=== PATIENT | male | born 1980 | race Caucasian/White ===

== ENCOUNTER 2023-12-06 13:16 | Inpatient (IN) ==
--- OUTSIDE RECORDS SUMMARY | 2023-12-06 13:22 | External Medical Summary | Continuity of Care Document ---
Author Name Unknown Organization [address] Address [address] [place] [address] [place], [place] [id number] Encounter PS FINNBR [id number] Date(s): 12/03/23 - 12/03/23 [facility] [address] [place] [address] [facility] [address], [address] [place] [address] [phone] Encounter Diagnosis Body mass index [BMI] 28.0-28.9, adult(Discharge Diagnosis) - 12/03/23 Left flank pain(Discharge Diagnosis) - 12/03/23 Ureterolithiasis(Discharge Diagnosis) - 12/04/23 Discharge Disposition: Home or Self Care Attending Physician: DO Dash Kristen M Allergies, Adverse Reactions, Alerts No Known Allergies Assessment and Plan Extracted from: Title:Office Visit Note Author:MD Cony, Wasiq Date:12/03/23 1.Left flank pain Acute w/ systemic symptoms or complicated injury Goal:Diagnosis, resolution Data:UA reviewed _ Plan: -Suspect potential ascending UTI vs kidney stone -We will obtain CTAP for further evaluation -UA in office negative though clinical history suggests UTI, will begin treatment with antibiotics- ciprofloxacin 500 mg BID x7 days + extend if needed -Encouraged hydration Medications ciprofloxacin 500 mg oral tablet Start: 12/03/23 10:58:00 EST, 1 tab, PO, q12h, Disp# 14 tab, Pharmacy: [id number] Start Date: 12/03/23 Stop Date: 12/10/23 Status: Ordered Flomax 0.4 mg oral capsule Start: 12/04/23 15:37:00 EST, 1 cap, PO, Daily, Disp# 30 cap, Pharmacy: [id number] Start Date: 12/04/23 Stop Date: 01/03/24 Status: Ordered multivitamin Start: 12/13/18 11:12:00 EST, 1 tab, PO, Daily Start Date: 12/13/18 Status: Ordered Mental Status 12/03/23 Barriers to Learning one year None evide nt Mandatory Health Literacy Documentation Yes Health Literacy Communication Barriers N ever Primary Language Nicaraguan Problem List Condition Confirmation Course Effective Dates Status Health St atus Informant Chronic rhinitis Confirmed Active Ganglion, right wrist Confirmed Active Dyspepsia Confirmed Active H. pylori infection Confirmed Active Diffuse arthralgia Confirmed Active Elevated LFTs Confirmed Active Numbness of right hand Confirmed Active Tobacco user Confirmed Active Diagnosis Diagnosis Type Effective Dates Health Status Clinical Service Informant Body mass index [BMI] 28.0-28.9, adult Discharge Diagnosis 12/03/23 Non-Specified Left flank pain Discharge Diagnosis 12/03/23 Ureterolithiasis Discharge Diagnosis 12/04/23 Non-Specified Procedures Procedure Date Related Diagnosis Body Site Status Chest X-ray 1 11/10/[address] of abdomen and pelvis 2 11/10/20 Completed EKG finding 3 11/10/20 Completed Chest x-ray 4 11/08/[address] angiogram of the chest 5 11/08/20 Completed US - Ultrasound 6 03/23/19 [facility] ed 1Impression: Subtle basilar airspace opacities, likely infectious/inflammatory. 2Impression: No evidence of bowel obstruction. No evidence of free air. Normal appendix. No evidence of actue diverticulitis Mild splenomegaly Multifocal groundglass pulmonary opacities consistent with a multifocal pneumonia. Correlation withcovid 19 testing is recommended. Left-sided nephrolithiasis. 3Normal sinus rhythm Normal ECg When compared with ECG of Dec 2018 Vent rate has increased by 35 BPM. 4No acute cardiopulmonary findings 5Impression: 1. No evidence of acute pulmonary embolism 2. Multifocal groundglass opacities. The findings are suspicious for, but not diagnostic of [id number] 3. Multinodular left lobe the thyroid. Nonemergent thyroid ultrasonography is recommended in follow-up 6IMPRESSION: 1. 2 mm gallbladder polyp. 2. No evidence for shadowing gallstones. 3. Normal caliber bile duct. 4. Slight splenic prominence at 12 cm. Results Laboratory List Name Date Urine Culture-CAP (Urine Cx-ARLN) 12/03/23 Urine Chemstick POC Outpt (Urinalysis Ch emstick POC Outpt) 12/03/23 Most recent to oldest [Reference Range]: 1 Urine Cx-[facility] See Result Comment 1 (12/03/23 12:12 PM) Glucose Urine Dipstick Ref Range [negati ve] (12/03/23 2:49 PM) Bilirubin Urine Dipstick Ref Range [nega tive] (12/03/23 2:49 PM) Specific [place] Urine Ref Range [No Nor mal Defined] (12/03/23 2:49 PM) Protein Urine Dipstick Ref Range [negati ve] (12/03/23 2:49 PM) pH Urine Dipstick Ref Range [4.5 - 8.0] (12/03/23 2:49 PM) Ketones Urine Dipstick Ref Range [negati ve] (12/03/23 2:49 PM) Blood Urine Dipstick Ref Range [negative ] (12/03/23 2:49 PM) Urobilinogen Urine Dipstick Ref Range [0 .2 - 1.0 mg/dL] (12/03/23 2:49 PM) Nitrites Urine Dipstick Ref Range [negat kely] (12/03/23 2:49 PM) Leukocytes Urine Dipstick Ref Range [neg ative] (12/03/23 2:49 PM) Urine Chem Lot# [id number] (12/03/23 2:49 PM) Urine Chem Expiration Date (12/03/23 2:49 PM) U Leuk Est Negative (12/03/23 2:49 PM) U Nitrite Negative (12/03/23 2:49 PM) U Urobilinogen 0.2 mg/dl (12/03/23 2:49 PM) U Protein Negative (12/03/23 2:49 PM) U pH 6.5 2 (12/03/23 2:49 PM) U Blood Small (12/03/23 2:49 PM) U Spec Grav >1.030 (12/03/23 2:49 PM) U Ketones Negative (12/03/23 2:49 PM) U Bili Negative (12/03/23 2:49 PM) U Gluc Negative (12/03/23 2:49 PM) U Appear Clear (12/03/23 2:49 PM) Urine color urine dipstick Yellow (12/03/23 2:49 PM) 1Result Comment: CULTURE, URINE, ROUTINE Micro Number: [id number] Test Status: Final Specimen Source: Not given Specimen Quality: Adequate Result: No Growth Specimen Received d/t: 12/04/2023 00:18:00 Lab test performed by: [employer], Lost [facility] [address] [place] [address] Dameon Metzger MD 2Result Comment: Performed at: [facility], [address], [address], [place] [address] Vital Signs Most recent to oldest [Reference Range]: 1 Height 184.4 cm (12/03/23 10:34 AM) Patient Weight 97.0 kg (12/03/23 10:34 AM) Body Mass Index 28.53 kg/m2 (12/03/23 10:34 AM) Temperature [36.5-37.9 DegC] 36.6 DegC (12/03/23 10:34 AM) Heart Rate 60 bpm (12/03/23 10:34 AM) Blood Pressure 112/70mmHg (12/03/23 10:34 AM) Cuff Pulse Pressure 42 mmHg (12/03/23 10:34 AM) Social History Social History Type Response Smoking Status Never smoked cigaret hannah Sex Male FCM Outpt Note * DO Dash Kristen M: MODIFY DO Dash Kristen M: MODIFY Event Display: FCM Outpt Note Authored Date: [id number] Chief Complaint Left lower back to abdomen. started about 2-3 days ago. History of Present Illness 43 M presenting with L flank pain. L flank pain -Started 3 days prior with sudden onset -Radiates to L lower back -He did have UTI about 2 months prior which resolved with ciprofloxacin he received from his physician in [place]. These symptoms are similar to what he had before -He did have a kidney stone 15 years ago for which this pain is similar but far more severe at the time -He has been experiencing some dysuria and difficulty initiating urination -Denies fever, chills, nausea/vomiting Review of Systems Per HPI Physical Exam Vitals & Measurements T:36.6C HR:60(Monitored) BP:112/70 SpO2:97% HT:184.4cm WT:97.000kg(Dosing) WT:97.0kg BMI:28.53 PHQ2 Data(Data Documented on:12/03/2023 10:32) Emotional health assessment NEGATIVE General: well-appearing, no acute distress CV: RRR, normal S1, S2, no murmurs Resp: CTAB, unlabored respirations Abd: soft, tender to L flank, L CVA tenderness, no guarding or rebound Assessment/Plan 1.Left flank pain Acute w/ systemic symptoms or complicated injury Goal:Diagnosis, resolution Data:UA reviewed _ Plan: -Suspect potential ascending UTI vs kidney stone -We will obtain CTAP for further evaluation -UA in office negative though clinical history suggests UTI, will begin treatment with antibiotics-ciprofloxacin 500 mg BID x7 days + extend if needed -Encouraged hydration Attestation I saw the patient and confirmed the vela portions of the history and physical exam and agree with the impression and plan above. CT today, coverage for male UTI/prostatitis Problem List/Past Medical History Ongoing Chronic rhinitis Diffuse arthralgia Dyspepsia Elevated LFTs Ganglion, right wrist H. pylori infection Numbness of right hand Tobacco user Procedure/Surgical History CT of abdomen and pelvis (11/10/2020)EKG finding (11/10/2020)Chest X- ray (11/10/2020)Chest x-ray (11/08/2020)CT angiogram of the chest (11/08/2020)US - Ultrasound (03/23/2019) Medications ciprofloxacin(ciprofloxacin 500 mg oral tablet), 500 mg= 1 tab, PO, q12h multivitamin, 1 tab, PO, Daily Allergies NKA No Known Medication Allergies Social History Smoking Status Never smoked cigarettes Alcohol - No Risk Exercise - Occasional exercise Tobacco - Low Risk Family History Hyperlipidemia: Mother. Health Status Family Member(s) Recommendations Health Maintenance Pending(in the next year) OverDue Adult Influenza Vaccine due05/01/23and every 1year Due Adult COVID-19 Vaccination due12/03/23Unknown Frequency Adult Social Determinants of Health Screening due12/03/23Unknown Frequency Adult Tdap/Td Vaccine due12/03/23Unknown Frequency Lipid Screening due12/03/23Unknown Frequency Satisfied(in the past 1 year) Satisfied Body Mass Index on12/03/23.Satisfied by SUHAIL Chance Angela Electronic Signature on File Electronically Reviewed/Signed by: Deloris Donnelly MD Author Signature Dt/Tm:12/03/2023 10:59 AM Resident Department of Family Medicine Electronically Reviewed/Signed by: DO Marci Guevara Signature Dt/Tm: 12/03/2023 11:38 AM Department of Family Medicine [place] Patient Care team information Care Team Related Persons Name: ROBERT CASTRO Address: home [address], [place] [id number] Name: ROBERT CASTRO Address: [place] Address: home [address] [place] [id number]
--- NOTE | 2023-12-06 14:23 | XRay Report ---
KUB HISTORY: Acute left-sided flank pain left flank pain, kidney stone COMPARISON: CT 12/03/2023 FINDINGS: The bowel gas pattern is non-obstructive. There is no organomegaly. 4 mm calculus of the i nferior pole left kidney redemonstrated. Unchanged positioning of the 9 mm calculus in the proximal l eft ureter at the level of L2-L3. Pelvic basin phleboliths are again noted. No pneumoperitoneum or pn eumatosis. No fracture. IMPRESSION: 1. Unchanged position of the 9 mm calculus within the proximal left ureter at the level of L2-L3. 2. Left nephrolithiasis. ACT 112: Negative or not required by law. The above report was generated using voice recognition software. It may contain grammatical, syntax o r spelling errors. Electronically signed by: Rey Lloyd M.D. 12/06/2023 2:22 PM
[2023-12-06] MEDS: MoRPHine SULFATE 10 MG/ML CARP/VIAL IV STA (14:24)
[2023-12-06] MEDS: ONDANSETRON INJ 2 MG/ML 2 ML VIAL IV STA (14:25)
[2023-12-06] MEDS: SODIUM CHLORIDE 0.9% 1,000 ML IV ONE (14:25)
[2023-12-06 14:52] LABS: Basophils # (auto) 0.07 K/uL (0.00-0.20); Basophils % (auto) 0.9 %; Eosinophils # (auto) 0.23 K/uL (0.00-0.50); Hematocrit (blood only) 42.4 % (42.0-52.0); Hemoglobin 14.8 g/dl (14.0-18.0); Immature Granulocytes # (auto) 0.03 K/uL (0.01-0.20); Immature Granulocytes % (auto) 0.4 %; Lymphocytes # (auto) 2.97 K/uL (1.20-3.40); Lymphocytes % (auto) 38.4 %; Mean Corpuscular Hemoglobin 30.8 pg (25.0-34.0); Mean Corpuscular Hgb Conc 34.9 g/dL (32.0-36.0); Mean Corpuscular Volume 88.3 fL (80.0-100.0); Monocytes # (auto) 0.71 K/uL (0.11-0.59); Monocytes % (auto) 9.2 %; Neutrophils # (auto) 3.73 K/uL (1.40-6.50); Neutrophils % (auto) 48.1 %; Platelet Count 236 K/uL (130-400); RDW Coefficient of Variation 12.6 % (11.5-14.5); RDW Standard Deviation 41.1 fL (36.4-46.3); White Blood Count 7.74 K/ul (4.8-10.8)
[2023-12-06 15:08] LABS: Albumin Level 4.8 gm/dl (3.4-5.0); Bilirubin,Total 0.3 mg/dl (0.2-1.0); Calcium 9.7 mg/dl (8.6-10.3); Est GFR (African American) 125.8 ml/min; Est GFR (Non-African American) 108.5 ml/min; Globulin 2.4 gm/dl (2.5-4.0); Potassium 3.9 mmol/L (3.5-5.1); Total Protein 7.2 gm/dl (6.0-8.3)
[2023-12-06 15:15] LABS: Appearance Urine Cloudy (Clear); Bilirubin Urine Negative (Negative); Blood Urine Trace-intact (Negative); Color Urine Yellow; Glucose Urine UA Negative (Negative); Ketones Urine Negative (Negative); Leukocyte Esterase Urine Negative (Negative); Nitrite Urine Negative (Negative); Protein Urine Negative (Negative); Specific Gravity Urine 1.015 (1.000-1.030); Urobilinogen Urine Negative (Negative)
[2023-12-06 15:36] LABS: Epithelial Cell Urine 0-5 /lpf (0-5)
[2023-12-06 15:39] LABS: Bacteria Urine 3+ (Negative); RBC Urine 0-4 /hpf (0-4); WBC Urine 0-5 /hpf (0-5)
[2023-12-06] MEDS: cefTRIAXone SODIUM 2,000 MG/50 ML BAG IV STA (16:41)
--- NOTE | 2023-12-06 16:55 | History & Physical Report ---
Date of Service December 06, 2023 Assessment & Plan (1) Nephrolithiasis: Plan: Acute worsening of lower back pain on 12/[address] on 12/03 which revealed left proximal ureteral stone with minimal hydroureter Hx of kidney stones No leukocytosis; afebrile X-ray KUB on 12/06 revealed unchanged position of 9 mm calculus within the proximal left ureter Renal ultrasound ordered to rule out progression of left hydronephrosis Urine strainer ordered Keep n.p.o. until discussion with urology Continue tamsulosin 0.4 mg p.o. daily Zofran as needed for nausea/vomiting Acetaminophen as needed for fever/pain 1-3 Dilaudid IV q4h as needed for pain 4-10 IVF with Plasma-Lyte at 125 mL/hr x2 Urology consulted A.m. CBC, BMP, mag (2) UTI (urinary tract infection): Plan: UA with 3+ bacteria on arrival Clinically, patient endorses dysuria and burning with urination Urine culture ordered, pending Rocephin 2000 mg IV q24h (3) Bradycardia: Plan: Heart rate 45-58 bpm in the ED Clinically, patient denies CP EKG ordered, pending (to check for heart block, in the event that anesthesia would be needed) Plan Disposition: Admit to [facility] Full code Keep n.p.o. until discussion with urology VTE PPx: SCDs (hold chemical DVT PPx pending urology eval) History of Present Illness Chief Complaint: Back injury/pain Primary Care Provider: Deloris Donnelly MD Amr is a 43-year-old male with PMH of anxiety, GERD, deviated septum, chronic sinusitis, and allergic rhinitis. Presented for worsening lower back pain on 12/06. He had a CT A/P completed on 12/03 which noted a left ureteral kidney stone. Hx of prior kidney stones. He endorses left lower back pain, which he characterizes as intermittent, stabbing pain even at rest. He has been taking ibuprofen for the pain at home (4 tablets total). He rates his pain 2/10 after receiving morphine in the ED. Patient takes vitamin supplements on daily basis; no other medications. He endorses occasional smoking with tobacco cigarettes, and vaping of THC; not frequently. He denies recent alcohol use. Patient is mildly bradycardic at 52 bpm at time of admission; vitals otherwise stable. ED course: Rocephin 2000 mg IV Zofran 4 mg IV NSS 1000 mL IV Morphine sulfate 6 mg IV ROS: Patient endorses chills, nausea, dysuria, and burning with urination. Patient denies fever, body aches, sweating, cough, chest pain, SOB, abdominal pain, vomiting, diarrhea, urinary retention, blood in the urine/stool, saddle anesthesia, or pain/numbness/tingling in the legs. Allergies Allergy/AdvReac Type Severity Reaction Status Date / Time Penicillins AdvReac Intermediate feels very Verified 12/06/23 16:35 tired Home Medications Medication Instructions Recorded Confirmed Type Rowatinex 1 dose PO DIRECTED PRN MUSCLE 12/06/23 12/06/23 History SPASMS/BLADDER STONES tamsulosin 0.4 mg capsule 0.4 mg PO DAILY 12/06/23 12/06/23 History Past Med/Surg History Medical History Chronic sinusitis GERD (gastroesophageal reflux disease) Anxiety Surgical History History of endoscopic sinus surgery +SEPTOPLASTY History of tonsillectomy Family History Other Family history unknown No family history of adverse response to anesthesia Social History Smoking Status: Current every day smoker Tobacco Type: E-cigarettes / Vaping Second Hand Exposure: No; Do You Dip or Chew Tobacco: No; Tobacco Cessation Education Requested by Patient: No Hx Alcohol Use: No Hx Substance Use: No Preferred Language: Bulgarian Communication Ability: Effective Software Installer Required: No Beliefs That Will Affect Care: Cultural Cultural Beliefs: NO PORK PRODUCTS marital status: Current Living Situation: Spouse Other Information That Helps Us Care for You: No Feels Safe at Home: Yes Safety Concerns: Feels Safe At This Time Assistive Devices: None Review of Systems Review of Systems: See HPI above Physical Exam Physical Exam: General: no acute distress; non-toxic appearing; well-nourished; cooperative HEENT: normocephalic, atraumatic; no scleral icterus; PERRLA; vision and hearing grossly intact Neck: supple; no lymphadenopathy; trachea midline Skin: warm, dry without signs of tenting; no cyanosis; no rashes, bruising, lesions, or erythema noted CV: chest wall NTP; RRR; S1/S2 normal; no murmurs/rubs/gallops; pulses intact and symmetric at radial, DP, and PT Lungs: no acute respiratory distress; symmetrical chest wall expansion; clear breath sounds across all lung gonzalez w/o adventitious sounds; no wheezing ABD: Soft, NTP; BS present; no rebound/guarding; no ascites; no distention; positive left CVA tenderness, no flank pain to palpation; no rashes or bruising noted on abdomen or back MSK: no tics or fasciculations; no edema noted in the LEs b/l, nonerythematous Neuro: A&Ox3; normal mood and affect; fluent speech; no focal deficits; sensation grossly intact in the LEs b/l Results & Data Results & Data Vital Signs (Past 12 Hours) Vital Signs Temp Pulse Pulse Resp BP BP Pulse Ox 12/06/23 15:13 45 L 20 143/90 H 99 12/06/23 14:33 53 L 16 99 12/06/23 13:33 58 L 22 132/76 98 12/06/23 13:20 36.3 C L 56 L 22 136/82 100 O2 Del Method 12/06/23 15:13 Room Air 12/06/23 14:33 Room Air 12/06/23 13:33 Room Air 12/06/23 13:20 Laboratory Results Abnormal lab results 12/06/23 12/06/23 Range/Units 14:30 Unknown [place] # (Auto) 0.71 H (0.11-0.59) K/uL Globulin 2.4 L (2.5-4.0) gm/dl Urine Appearance Cloudy A (Clear) Urine pH 8.0 H (4.5-7.5) Urine Blood Trace-intact H (Negative) Urine Bacteria 3+ H (Negative) Diagnostic Findings KUB X-Ray 12/06/23 13:49 KUB HISTORY: Acute left-sided flank pain left flank pain, kidney stone COMPARISON: CT 12/03/2023 FINDINGS: The bowel gas pattern is non-obstructive. There is no organomegaly. 4 mm calculus of the inferior pole left kidney redemonstrated. Unchanged positioning of the 9 mm calculus in the proximal left ureter at the level of L2- L3. Pelvic basin phleboliths are again noted. No pneumoperitoneum or pneumatosis. No fracture. IMPRESSION: 1. Unchanged position of the 9 mm calculus within the proximal left ureter at the level of L2-L3. 2. Left nephrolithiasis. ACT 112: Negative or not required by law. The above report was generated using voice recognition software. It may contain grammatical, syntax or spelling errors. Electronically signed by: Rey Lloyd M.D. 12/06/2023 2:22 PM Code Status & VTE Plan Code Status Full code VTE Prophylaxis Plan VTE Prophylaxis will be ordered: Yes Supervising Physician Co-Signing Physician Notes Patient seen and examined, chart reviewed, case discussed with Antwon Hart, PAC and I agree with the assessment and plan as above except as otherwise noted Labs and images reviewed 43-year-old male with a known 9 mm calculus who presents with unchanged positioning of his 9 mm, creatinine of 0.83, and continued pain. CTA/P from 12/03/2023 showed minimal hydroureter. Urology was consulted in the ER, patient is recommended for medical admission and urologic consultation. UA is infected appearing, patient has been continued on Rocephin for UTI in the setting of nephrolithiasis. Renal ultrasound has been ordered to reassess for hydro. N.p.o. at midnight.Patient has asymptomatic resting bradycardia; no heart block on EKG. At bedside nad, lungs clear, continues to have mild flank pain. Nontoxic. agree with antibiotics, pain control, and management as above. PG Care Time/CCT Total # of Minutes Spent Total Time Spent with Patient: Total time spent is greater than 50% in coordination of care (as documented) at patient's floor/unit and/or counseling patient: [place] [address] INT INP/OBS CARE 1/40MIN Patient Type Established Medical Decision Making Low Complexity Diagnoses Nephrolithiasis N20.0 UTI (urinary tract infection) N39.0 Bradycardia R00.1
[2023-12-06] MEDS ORDERED: HYDROmorphone INJ 0.5 MG/0.5 ML SYR IV PRN (18:31)
[2023-12-06 18:33] LABS: Magnesium 1.7 mg/dl (1.7-2.4)
[2023-12-06] MEDS: HYDROmorphone INJ 1 MG/ML SYRINGE IV PRN (18:46)
--- NOTE | 2023-12-06 19:31 | Urology Consultation ---
Date of Consultation December 06, 2023 Assessment & Plan (1) Nephrolithiasis: Patient has been admitted on the hospital service. From a urologic perspective we recommend the following: Provide analgesics Provide antiemetics Follow serial labs Provide IV fluid for hydration Recommend initiating Flomax for expulsive therapy. The admitting service has already ordered this medication There is concern patient has an underlying urinary tract infection. Antibiotics in the form of Rocephin have been initiated. Would recommend continue these and they can be tailored based on pending culture results At the present time the patient is normotensive without tachycardia or fever. He also does not exhibit leukocytosis, fever, or acute kidney injury. Therefore there is no need for an emergent urologic intervention tonight. Would recommend making patient n.p.o. after midnight. Patient be reassessed in the morning and a determination was made if patient will require cystoscopy. Plan Attending note: Patient independently assessed, examined, interviewed, and evaluated. Patient with obstructing stone, Renal Colic, and significant discomfort. Left Prox ureter stone. Agree with note as above. Patient's vitals and labs were all reviewed. Pertinent values in the HPI and plan section. Imaging was reviewed interpreted by myself. Agree with read. Vitals were reviewed. Discussed findings extensively with patient and family. Reviewed with nurse practitioner as well as consulting physicians/team. Patient's complicated medical and surgical history was reviewed and summarized above. Patient's surgical, medical, social, and family history were all reviewed with pertinent values as above. Discussed patient's current diagnosis as well as concerns and issues. Reviewed different options moving forward. Discussed potential risks and benefits as well as possible options and concerns. Reviewed potential surgical options and interventions. Discussed potential issues and concerns related to intervention. Patient being admitted for observation and IV hydration and supportive care for maximum expulsion therapy to try to facilitate spontaneous passage. If patient has continued issues major pain development of fevers or chills or significant ANDRA could consider possible intervention. If stone does not appear to be moving and is still causing major issues would also consider moving forward with intervention. Will plan to monitor with possible intervention. History of Present Illness Reason for Consultation: Nephrolithiasis Attending Physician: Sigifredo Tinoco MD History of Present Illness This is a 43-year-old male who was admitted to the hospital today secondary to left-sided flank pain. The patient says that he has been having pain in the left flank region of his back for approximately 1 week. He denies any nausea or vomiting. He denies any fevers, shakes, or chills. He denies any hematuria. He does report some intermittent dysuria. Patient notes that he has had kidney stones in the past and has been able to successfully pass them without any procedural intervention. Since arrival to the hospital today the patient has had labs and imaging which independent reviewed. A KUB was performed that showed he had akidney stone m easuring approximately 9 mm in the proximal left ureter. Labs include a CBC were white blood cell count, hemoglobin, hematocrit, platelet count were all normal. Chemistry profile showed sodium and potassium along with the BUN and creatinine were within the normal range. Urinalysis showed cloudy urine which was negative for nitrites and negative for leukocyte Estrace. Patient did have 3+ bacteria on the study but there is no pyuria noted on this study. Of note, the patient did have a CT scan of the abdomen pelvis on 12/03/2023. This showed the patient had a left proximal obstructing 6 mm stone ureteral stone with minimal hydroureter. At the time of my interview the patient was resting comfortably in bed and was in no distress. Allergies Allergy/AdvReac Type Severity Reaction Status Date / Time Penicillins AdvReac Intermediate feels very Verified 12/06/23 16:35 tired Home Medications Medication Instructions Recorded Confirmed Type Rowatinex 1 dose PO DIRECTED PRN MUSCLE 12/06/23 12/06/23 History SPASMS/BLADDER STONES tamsulosin 0.4 mg capsule 0.4 mg PO DAILY 12/06/23 12/06/23 History Patient History Medical History Chronic sinusitis GERD (gastroesophageal reflux disease) Anxiety Surgical History History of endoscopic sinus surgery +SEPTOPLASTY History of tonsillectomy Family History Other Family history unknown No family history of adverse response to anesthesia Social History Smoking Status: Current every day smoker Tobacco Type: E-cigarettes / Vaping Second Hand Exposure: No; Do You Dip or Chew Tobacco: No; Tobacco Cessation Education Requested by Patient: No Hx Alcohol Use: No Hx Substance Use: No Preferred Language: Greek Communication Ability: Effective City Administrator Required: No Beliefs That Will Affect Care: Cultural Cultural Beliefs: NO PORK PRODUCTS marital status: Current Living Situation: Spouse Other Information That Helps Us Care for You: No Feels Safe at Home: Yes Safety Concerns: Feels Safe At This Time Assistive Devices: None Review of Systems Constitutional: no fever and no chills Ear, Nose, Mouth, Throat: no hearing loss Respiratory: no cough and no dyspnea Cardiovascular: no chest pain Gastrointestinal: no abdominal pain, no nausea and no vomiting Genitourinary: + as per Subjective / HPI Musculoskeletal: + back pain (Left flank) Integumentary: no rash Neurologic: no localized weakness Physical Exam Constitutional: WD/WN, vitals as above Eyes: no conjunctival abnormality ENMT: Ears: no hearing impairment and no external ear abnormality Mouth: no oropharynx abnormality Neck: trachea midline Respiratory: normal respiratory effort; no respiratory distress and no labored breathing Cardiovascular: Rate/Rhythm: regular rate and regular rhythm Gastrointestinal (Abdomen): Soft and nontender to palpation Musculoskeletal: No calf tenderness Skin: no rashes Neurologic: moves all extremities Psychiatric: A+Ox3, euthymic affect Genitourinary: At the time of my exam the patient had no CVA tenderness with percussion bilaterally Results & Data Vital Signs (Past 12 Hours) Vital Signs Temp Pulse Pulse Resp BP BP Pulse Ox 12/06/23 17:57 54 L 16 135/82 98 12/06/23 17:00 52 L 18 137/83 96 12/06/23 15:13 45 L 20 143/90 H 99 12/06/23 14:33 53 L 16 99 12/06/23 13:33 58 L 22 132/76 98 12/06/23 13:20 36.3 C L 56 L 22 136/82 100 O2 Del Method 12/06/23 17:57 Room Air 12/06/23 17:00 Room Air 12/06/23 15:13 Room Air 12/06/23 14:33 Room Air 12/06/23 13:33 Room Air 12/06/23 13:20 PG Care Time/CCT Total # of Minutes Spent Total Time Spent with Patient: Total time spent is greater than 50% in coordination of care (as documented) at patient's floor/unit and/or counseling patient: Coding Level of Care Code 54657 IN/OBS CONSULT LVL 5,80M Diagnoses Nephrolithiasis N20.0
[2023-12-06] MEDS: PLASMA-LYTE A 1,000 ML IV SCH (19:45)
--- NOTE | 2023-12-06 20:24 | Emergency Department Note ---
ED Provider Note History of Present Illness Chief Complaint: Back Injury/Pain Stated Complaint: LOWER BACK PAIN Source: patient Mode of arrival: ambulatory Limitations: no limitations This patient is a 43-year-old male who presents to the emergency department for evaluation of left-sided back/flank pain. Patient states that his pain started 4 to 5 days ago, but has gradually become more severe. He reports that pain is located in the left flank and feels like a stabbing sensation. He did see his PCP 2 days ago and they ordered a CT scan and some additional testing. He was told that he had a kidney stone and should go to the ER for possible admission. He was also prescribed Flomax but no pain medication. He has been taking ibuprofen for pain without relief. He has not been vomiting. He does feel like it is somewhat difficult for him to urinate. He denies any fever/chills Home Medications Medication Instructions Recorded Confirmed Type Rowatinex 1 dose PO DIRECTED PRN MUSCLE 12/06/23 12/06/23 History SPASMS/BLADDER STONES tamsulosin 0.4 mg capsule 0.4 mg PO DAILY 12/06/23 12/06/23 History Allergies Allergy/AdvReac Type Severity Reaction Status Date / Time Penicillins AdvReac Intermediate feels very Verified 12/06/23 16:35 tired Past Med/Surg History Medical History Chronic sinusitis GERD (gastroesophageal reflux disease) Anxiety Surgical History History of endoscopic sinus surgery +SEPTOPLASTY History of tonsillectomy Family History Other Family history unknown No family history of adverse response to anesthesia Social History Smoking Status: Current every day smoker Tobacco Type: E-cigarettes / Vaping Second Hand Exposure: No; Do You Dip or Chew Tobacco: No; Hx Alcohol Use: No Hx Substance Use: Yes Last Used Substance Other:: SMOKES MARIJUANA INTERMITTENLY (ADVISED) Preferred Language: Latvian Communication Ability: Effective Test Manager Required: No Beliefs That Will Affect Care: Cultural Cultural Beliefs: NO PORK PRODUCTS marital status: Current Living Situation: Family Feels Safe at Home: Yes Assistive Devices: None Physical Exam Vital Signs Vital Signs - 24 hr 12/06/23 13:20 12/06/23 13:33 12/06/23 14:33 Temperature 36.3 C L Temperature Source Temporal Artery Scan Pulse Rate 56 L 53 L Pulse Rate [Apical] 58 L Pulse Rhythm Regular Respiratory Rate 22 22 16 Respiratory Effort / Characteristics Respiratory Depth Normal Blood Pressure 136/82 Blood Pressure [Right Arm] 132/76 Blood Pressure Mean 100 Blood Pressure Mean [Right Arm] 94 Blood Pressure Position [Right Arm] Lying Pulse Oximetry 100 98 99 Oxygen Delivery Method Room Air Room Air Sepsis Recent Fever Within 48 Hours No Sepsis New/Unexplained Change in Mental Status N/A Sepsis Action Taken by Nursing No Action Required 12/06/23 15:13 12/06/23 17:00 Temperature Temperature Source Pulse Rate Pulse Rate [Apical] 45 L 52 L Pulse Rhythm Respiratory Rate 20 18 Respiratory Effort / Characteristics Non-Labored Non-Labored Respiratory Depth Normal Normal Blood Pressure Blood Pressure [Right Arm] 143/90 H 137/83 Blood Pressure Mean Blood Pressure Mean [Right Arm] 107 101 Blood Pressure Position [Right Arm] Pulse Oximetry 99 96 Oxygen Delivery Method Room Air Room Air Sepsis Recent Fever Within 48 Hours Sepsis New/Unexplained Change in Mental Status Sepsis Action Taken by Nursing VITALS: Vitals are noted on the nurse's note and reviewed by myself. GENERAL: This is a 43-year-old male, in no acute distress, well-developed well- nourished. SKIN: The skin was without rashes. HEART: Regular rate and rhythm without murmurs gallops or rubs. LUNGS: Clear to auscultation bilaterally without wheezes, rales or rhonchi. ABDOMEN: Positive bowel sounds x 4. Soft, nontender to palpation. Left CVA tenderness noted. NEURO: Patient was alert and oriented to person place and time. Course Administered Medications Hydromorphone HCl (Hydromorphone Inj 1 Mg/Ml Syringe) 1 mg IV Q4H PRN PRN Reason: Severe Pain (7,8,9,10) on NRS Stop: 12/20/23 18:30 Last Admin: 12/06/23 18:46 Dose: 1 mg Documented By: CMV Discontinued Medications Sodium Chloride (Nss) 1,000 mls @ 999 mls/hr IV .Q1H1M ONE Stop: 12/06/23 14:49 Last Infusion: 12/06/23 15:44 Dose: Infused Documented By: Admin: 12/06/23 14:25 Dose: 999 mls/hr Documented By: SHEBA Ceftriaxone Sodium (Rocephin) 2,000 mg in 50 mls @ 100 mls/hr IV NOW STA Stop: 12/06/23 16:50 Last Infusion: 12/06/23 17:31 Dose: Infused Documented By: Admin: 12/06/23 16:41 Dose: 100 mls/hr Documented By: SHEBA Morphine Sulfate (Morphine Sulfate 10 Mg/Ml Carp/Vial) 6 mg IV NOW STA Stop: 12/06/23 13:50 Last Admin: 12/06/23 14:24 Dose: 6 mg Documented By: VANESAG Ondansetron HCl (Ondansetron Inj 2 Mg/Ml 2 Ml Vial) 4 mg IV NOW STA Stop: 12/06/23 13:50 Last Admin: 12/06/23 14:25 Dose: 4 mg Documented By: SHEBA Medical Decision Making Differential Diagnosis Differential diagnosis includes renal calculus, pyelonephritis, musculoskeletal pain, ruptured AAA, aortic dissection, diverticulitis, perforated viscus, bowel obstruction, biliary pathology, pancreatitis, PE, pneumonia, pneumothorax, trauma, herpes zoster, malignancy, among others. Medical Records Attestation: I reviewed the patient's medical records. Additional Comments: Outpatient CT reviewed and showed a 6 mm proximal left ureteral stone Laboratory Data Attestation: I reviewed the patient's lab results. 12/06/23 14:30 12/06/23 14:30 Lab Results 12/06/23 Range/Units 14:30 WBC 7.74 (4.8-10.8) K/ul RBC 4.80 (4.70-6.10) M/uL Hgb 14.8 (14.0-18.0) g/dl Hct 42.4 (42.0-52.0) % MCV 88.3 (80.0-100.0) fL MCH 30.8 (25.0-34.0) pg MCHC 34.9 (32.0-36.0) g/dL RDW Std Deviation 41.1 (36.4-46.3) fL RDW Coeff of Michael 12.6 (11.5-14.5) % Plt Count 236 (130-400) K/uL MPV 10.0 (9.4-12.4) fL Immature Gran % (Auto) 0.4 % Neut % (Auto) 48.1 % Lymph % (Auto) 38.4 % Dent % (Auto) 9.2 % Eos % (Auto) 3.0 % Baso % (Auto) 0.9 % Neut # (Auto) 3.73 (1.40-6.50) K/uL Lymph # (Auto) 2.97 (1.20-3.40) K/uL Dent # (Auto) 0.71 H (0.11-0.59) K/uL Eos # (Auto) 0.23 (0.00-0.50) K/uL Baso # (Auto) 0.07 (0.00-0.20) K/uL Immature Gran # (Auto) 0.03 (0.01-0.20) K/uL Sodium 139 (136-145) mmol/L Potassium 3.9 (3.5-5.1) mmol/L Chloride 103 (98-107) mmol/L Carbon Dioxide 29 (21-32) mmol/L Anion Gap 7 (3-11) BUN 10 (6-23) mg/dl Creatinine 0.83 (0.6-1.4) mg/dl Est Cr Clr Drug Dosing 140.0 ml/min Est GFR ( Amer) 125.8 ml/min Est GFR (Non-Af Amer) 108.5 ml/min BUN/Creatinine Ratio 12.0 (10-20) Glucose 87 (70-99(Fasting)) mg/dl Calcium 9.7 (8.6-10.3) mg/dl Magnesium 1.7 (1.7-2.4) mg/dl Total Bilirubin 0.3 (0.2-1.0) mg/dl AST 19 (13-39) U/L ALT 27 (7-52) U/L Alkaline Phosphatase 78 (34-104) U/L Total Protein 7.2 (6.0-8.3) gm/dl Albumin 4.8 (3.4-5.0) gm/dl Globulin 2.4 L (2.5-4.0) gm/dl Albumin/Globulin Ratio 2.0 (0.9-2) Imaging Data Attestation: I personally reviewed and interpreted this imaging study as follows: Radiologist's Impression: KUB X-Ray 12/06/23 13:49 KUB HISTORY: Acute left-sided flank pain left flank pain, kidney stone COMPARISON: CT 12/03/2023 FINDINGS: The bowel gas pattern is non-obstructive. There is no organomegaly. 4 mm calculus of the inferior pole left kidney redemonstrated. Unchanged positioning of the 9 mm calculus in the proximal left ureter at the level of L2- L3. Pelvic basin phleboliths are again noted. No pneumoperitoneum or pneumatosis. No fracture. IMPRESSION: 1. Unchanged position of the 9 mm calculus within the proximal left ureter at the level of L2-L3. 2. Left nephrolithiasis. ACT 112: Negative or not required by law. The above report was generated using voice recognition software. It may contain grammatical, syntax or spelling errors. Electronically signed by: Rey Lloyd M.D. 12/06/2023 2:22 PM MDM Narrative Continuous formula checker: Order was placed for continuous formula checker. Patient was placed on the formula checker. Patient was noted to be in sinus bradycardia at an initial rate of 55 bpm. The patient is a 43-year-old male who presents today complaining of left flank pain. Patient had an outpatient CT done 2 days ago which showed a 6 mm stone in the proximal left ureter. Patient having continued/uncontrolled pain today. Labs with no leukocytosis, normal kidney function. KUB shows unchanged position of the stone. Urinalysis is positive for 3+ bacteria. Patient was treated with IV fluids, morphine and Zofran. I did speak with urology who agreed that admission would be reasonable given the bacteria in urine and size of the stone. Patient was treated with ceftriaxone. [facility] for further care. Impression Calculus of proximal left ureter Discharge Plan Visit Data Chief Complaint: Back Injury/Pain Stated Complaint: LOWER BACK PAIN ED Provider: Jeanmarie Barrientos ED Midlevel Provider: Hayley Altamirano Discharge Problem: Calculus of proximal left ureter Patient Disposition: Admitted As Inpatient Discharge Instructions Interventions: ED Discharge Assessment Last Done: 12/06/23 17:57
--- NOTE | 2023-12-07 02:41 | Ultrasound Report ---
Exam(s): US RENAL EXAM: US Retroperitoneal Limited, Renal CLINICAL HISTORY: Reason for exam: Assess for Left hydronephrosis. TECHNIQUE: Real-time limited ultrasound of the retroperitoneum with image documentation. COMPARISON: No relevant prior studies available. FINDINGS: Right kidney: Unremarkable. 10.9 cm in length. No stones. No solid mass. No hydronephrosis. Left kidney: Unremarkable. 11.5 cm in length. No stones. No solid mass. No hydronephrosis. Bladder: Normal. Bilateral ureteral jets are seen. IMPRESSION: Normal renal ultrasound. Electronically signed by: Sukh Lorenzo MD 12/07/23 02:40 AM
[2023-12-07 06:29] LABS: Basophils # (auto) 0.06 K/uL (0.00-0.20); Basophils % (auto) 0.7 %; Eosinophils # (auto) 0.27 K/uL (0.00-0.50); Eosinophils % (auto) 3.3 %; Hematocrit (blood only) 39.6 % (42.0-52.0); Hemoglobin 13.4 g/dl (14.0-18.0); Immature Granulocytes # (auto) 0.01 K/uL (0.01-0.20); Immature Granulocytes % (auto) 0.1 %; Lymphocytes # (auto) 3.46 K/uL (1.20-3.40); Lymphocytes % (auto) 41.8 %; Mean Corpuscular Hemoglobin 30.5 pg (25.0-34.0); Mean Corpuscular Hgb Conc 33.8 g/dL (32.0-36.0); Mean Corpuscular Volume 90.2 fL (80.0-100.0); Mean Platelet Volume 9.6 fL (9.4-12.4); Monocytes # (auto) 0.79 K/uL (0.11-0.59); Monocytes % (auto) 9.6 %; Neutrophils # (auto) 3.68 K/uL (1.40-6.50); Neutrophils % (auto) 44.5 %; Platelet Count 199 K/uL (130-400); RDW Coefficient of Variation 12.6 % (11.5-14.5); RDW Standard Deviation 41.7 fL (36.4-46.3); Red Blood Count 4.39 M/uL (4.70-6.10); White Blood Count 8.27 K/ul (4.8-10.8)
[2023-12-07 06:45] LABS: BUN Creatinine Ratio 8.1 (10-20); Calcium 8.9 mg/dl (8.6-10.3); Creatinine Clr Calc Pharmacy 106.7 ml/min; Est GFR (African American) 108.4 ml/min; Est GFR (Non-African American) 93.6 ml/min; Magnesium 1.8 mg/dl (1.7-2.4); Potassium 4.2 mmol/L (3.5-5.1)
--- NOTE | 2023-12-07 07:52 | Hospitalist Progress Note ---
Date of Service December 07, 2023 Assessment & Plan (1) Calculus of proximal left ureter: (2) Flank pain: (3) UTI (urinary tract infection): (4) Abdominal bloating: Plan (1) Nephrolithiasis/Flank pain Acute worsening of lower back pain on 12/06, Hx of kidney stones Patient had CT on 12/03 which revealed left proximal ureteral stone with minimal hydroureter No leukocytosis; afebrile X-ray KUB on 12/06 revealed unchanged position of 9 mm calculus within the proximal left ureter Continue tamsulosin 0.4 mg p.o. daily, Zofran as needed for nausea/vomiting Pain Mgmt Acetaminophen as needed for fever/pain 1-3, Dilaudid IV q4h as needed for pain 4-10 Phenazopyridine, 200 mg, PO, TID, PRN, Toradol, 15 mg, IV, Q6h, PRN IVF with Plasma-Lyte at 125 mL/hr x2 Urology performed cystoscopy AM labs --> CBC, BMP, Mg (2) S/P Cystoscopy/L. retrograde pyelogram/l. ureteral stent placement/laser lithotripsy/Basket stone extraction - stone size, composition pending - patient w/ significant suprapubic and l. ureteral pain post-procedure - added pain meds, see above (2) UTI (urinary tract infection): UA with 3+ bacteria on arrival Clinically, patient endorses dysuria and burning with urination --> resolved this morning Urine culture ordered --> pinpoint growth, re-incubating Rocephin 2000 mg IV q24h (3) Bradycardia: -resolved Heart rate 45-58 bpm in the ED Clinically, patient denies CP EKG (12/06/23, 18.07) showed sinus bradycardia (4) Abdominal bloating, gas Simethicone chew, 160 mg, PO, Q8h, PRN Plan [facility]: [facility] Full code Diet: regular VTE PPx: SCDs (hold chemical DVT PPx pending urology eval) Admission and Anticipated Discharge Date Admission Date: December 06, 2023 Supervising Physician Co-Signing Physician Notes Attending Physician Supervision Note: I independently interviewed and examined the patient and verified the vela history and physical, reviewed labs and image studies and agree with findings and care plan noted above. flank pain d/t obstructive ureteric stone left - s/p stent placement. -continue pain control -urine cx growing pin-point growth - final results pending. continue rocephin Subjective Patient is 43 yo M w/ PMHx of kidney stones. Previous kidney stone pain felt constant radiating pain into groin. This one feels more like discomfort unless he'es moving--positional dependent. No confusion, dizziness/lightheadedness, just residual N/V including one vomiting episode this morning while taking his meds. Review of Systems Constitutional: no fever and no chills Ear, Nose, Mouth, Throat: no nasal congestion, no nasal discharge and no post nasal drip Respiratory: no cough and no dyspnea Cardiovascular: no chest pain, no radiating jaw, neck or arm pain and no palpitations Gastrointestinal: + nausea and + vomiting (vomited after m orning meds); no constipation and no diarrhea/loose stools Genitourinary: + flank pain (l. flank pain when moving (3/10)); no dysuria, no difficulty urinating, no urinary frequency or no hematuria Musculoskeletal: no myalgia and no body aches Neurologic: no loss of sensation, no tingling and no numbness Physical Exam Constitutional: WD/WN, vitals as above Respiratory: normal respiratory effort, lungs clear to auscultation Cardiovascular: RRR, no murmur, no edema Extremities: no calf tenderness and no pedal edema Gastrointestinal (Abdomen): Percussion/Palpation: + abdomen tender (in suprapubic area after cystoscopy/ureteral stent placement) Musculoskeletal: Extremities: extremities normal to inspection Psychiatric: A+Ox3, euthymic affect Genitourinary: + CVA tenderness (l. flank area this mor wes; more ureteral after cystoscopy) Results & Data Results & Data Vital Signs (Past 12 Hours) Vital Signs Pulse Ox O2 Del Method O2 Del Method 12/06/23 20:30 Room Air 12/06/23 20:30 97 Room Air Resident Activity Tracking Resident Involvement: Resident Care Provided Care Provided: Adult Hospital Medicine
[2023-12-07] MEDS: TAMSULOSIN HCL 0.4 MG CAP PO SCH (08:23)
--- NOTE | 2023-12-07 08:31 | Urology Progress Note ---
Date of Service December 07, 2023 Assessment & Plan (1) Calculus of proximal left ureter: (2) Flank pain: Plan 43yo M admitted with severe left sided flank pain secondary to an obstructing proximal left ureteral stone. CT abd pelvis from 12/03/23 demonstrated an obstructing 6mm proximal left ureteral stone. KUB 12/06/23 shows unchanged position of the proximal left ureteral stone. Still with left sided pain today, denies noticeable stone passage. Remains afebrile, hemodynamically stable. Labs today show no leukocytosis and normal renal function. UA on arrival with 3+bacteria. Urine culture pending. On Ceftriaxone. We discussed acute stone management with cystoscopy, stent placement, possible stone treatment. Ureteral stents were discussed as well as postoperative issues and pain management. He is aware a second procedure may be needed for stone treatment. Risks and benefits were discussed. All questions were answered. He is agreeable to proceeding. Plan for OR today for cystoscopy, left retrograde pyelogram, left ureteral stent placement, possible ureteroscopy, laser lithotripsy/stone treatment depending on findings with Dr. Green. Risks and benefits discussed as per consent. Continue supportive care and pain management. Continue antibiotics. Keep NPO. Urology will follow. Attending note: Patient independently assessed, examined, interviewed, and evaluated. Agree with note as above. Obstructing Left ureteral stone with obstruction, pain, and waves of discomfort. Reviewed with nurse practitioner as well as consulting physicians/team. Discussed patient's current diagnosis as well as concerns and issues. Reviewed different options moving forward. Discussed potential risks and benefits as well as possible options and concerns. Reviewed potential surgical options and interventions. Discussed potential issues and concerns related to intervention. Risk and benefits were discussed extensively with patient and any available family. Discussed potential risks related to anesthesia. Discussed risks of bleeding infection and injury. Plan for cystoscopy with possible left ureteroscopy and stone treatment and stent placement. Admission and Anticipated Discharge Date Admission Date: December 06, 2023 Subjective Patient examined at bedside this AM. Awake, resting in bed on arrival. No acute distress. Still with left-sided pain, managing with medication. No fevers. Some chills overnight but denies at present. Denies nausea or vomiting. Reports some dysuria/discomfort with voiding. No hematuria. Has been NPO. Imaging - CT 12/03/23- Obstructive stone in the left ureter measuring 6 mm. Minimal hydroureter is seen. Additional nonobstructive stones are seen. KUB 12/06/23- Unchanged position of the 9 mm calculus within the proximal left ureter at the level of L2-L3, Left nephrolithiasis. Renal ultrasound 12/06/23- Normal renal ultrasound Review of Systems Constitutional: as per Subjective / HPI Gastrointestinal: as per Subjective / HPI Genitourinary: + as per Subjective / HPI Physical Exam Constitutional: well developed and well nourished; no acute distress Respiratory: normal respiratory effort; no respiratory distress and no labored breathing Musculoskeletal: Head/Neck/Chest: normocephalic Neurologic: moves all extremities and awake Psychiatric: A+Ox3, euthymic affect Results & Data Vital Signs (Past 12 Hours) Vital Signs Temp Pulse Resp BP Pulse Ox O2 Del Method 12/07/23 07:54 36.8 C 57 L 18 130/94 96 Room Air PG Care Time/CCT Total # of Minutes Spent Total Time Spent with Patient: Total time spent is greater than 50% in coordination of care (as documented) at patient's floor/unit and/or counseling patient: Coding Level of Care Code 13412 SUB INP/OBS CARE 2/35MIN Diagnoses Calculus of proximal left ureter N20.1 Flank pain R10.9
[2023-12-07] MEDS: ONDANSETRON INJ 2 MG/ML 2 ML VIAL IV PRN (08:45)
--- NOTE | 2023-12-07 10:42 | Anesthesiology Consultation ---
Date of Service December 07, 2023 Assessment & Plan (1) Encounter for pre-operative examination: Chart Review Chart Review: Acceptable Risk for Surgery and Patient NOT seen in Pre Admission Testing Consults Requested none History Surgery Operation Date: 12/07/23 10:50 Proposed Procedures p Cystoscopy, Retrograde Pyelogram, Left Stent Placement, Possible Ureteroscopy, Laser Lithotripsy - aRul Green, Height/Weight Height: 6 ft Weight: 92.4 kg Allergies Allergy/AdvReac Type Severity Reaction Status Date / Time Penicillins AdvReac Intermediate feels very Verified 12/06/23 16:35 tired Medications Home Medications Medication Instructions Recorded Confirmed Last Taken Rowatinex 1 dose PO DIRECTED PRN MUSCLE 12/06/23 12/06/23 Unknown SPASMS/BLADDER STONES tamsulosin 0.4 mg capsule 0.4 mg PO DAILY 12/06/23 12/06/23 12/06/23 Active Medications Generic Name Dose Route Start Last Admin Trade Name Freq PRN Reason Stop Dose Admin Hydromorphone HCl 1 mg 12/06/23 18:31 12/07/23 01:18 Hydromorphone Inj 1 Mg/Ml Syringe IV 12/20/23 18:30 1 mg Q4H PRN Administration Severe Pain (7,8,9,10) on NRS Parenteral Electrolytes 1,000 mls @ 125 mls/hr 12/06/23 19:45 12/07/23 10:50 Plasma-Lyte A Ph 7.4 IV 12/07/23 11:44 0 mls/hr .Q8H IDALIA Infusion Ondansetron HCl 4 mg 12/06/23 18:31 12/07/23 08:45 Ondansetron Inj 2 Mg/Ml 2 Ml Vial IV 01/05/24 18:30 4 mg Q6H PRN Administration Nausea Tamsulosin HCl 0.4 mg 12/07/23 09:00 12/07/23 08:23 Tamsulosin Hcl 0.4 Mg Cap PO 01/06/24 08:59 0.4 mg DAILY IDALIA Administration NPO Date Last Intake of Fluids: 12/06/23 Time Last Intake of Fluids: 23:59 Date Last Intake of Solids: 12/06/23 Time Last Intake of Solids: 23:59 Past Medical History Medical History (Updated 12/07/23 @ 10:42 by Eric Quezada MD) Chronic sinusitis GERD (gastroesophageal reflux disease) Anxiety Past Family History Family History Other Family history unknown No family history of adverse response to anesthesia Past Surgical History Surgical History History of endoscopic sinus surgery +SEPTOPLASTY History of tonsillectomy Social History Smoking Status: Current every day smoker tobacco type: cigarettes Do You Dip or Chew Tobacco: No Hx Alcohol Use: No Hx Substance Use: No substance use type: marijuana Last Used Substance Other:: SMOKES MARIJUANA INTERMITTENLY (ADVISED) Physical Exam Vital Signs Last Vital Signs Temp 37.1 C 12/07/23 10:56 Pulse 64 12/07/23 10:56 Resp 18 12/07/23 10:56 BP 153/88 H 12/07/23 10:56 Pulse Ox 99 12/07/23 10:56 O2 Del Method Room Air 12/07/23 10:56 Testing Laboratory Results 12/07/23 06:09 12/07/23 06:09 Urine Color Yellow 12/06/23 Unknown Urine Appearance Cloudy (Clear) A 12/06/23 Unknown Urine pH 8.0 (4.5-7.5) H 12/06/23 Unknown Ur Specific [place] 1.015 (1.000-1.030) 12/06/23 Unknown Urine Protein Negative (Negative) 12/06/23 Unknown Urine Glucose (UA) Negative (Negative) 12/06/23 Unknown Urine Ketones Negative (Negative) 12/06/23 Unknown Urine Nitrite Negative (Negative) 12/06/23 Unknown Ur Leukocyte Esterase Negative (Negative) 12/06/23 Unknown Urine RBC 0-4 /hpf (0-4) 12/06/23 Unknown Urine WBC 0-5 /hpf (0-5) 12/06/23 Unknown Ur Epithelial Cells 0-5 /lpf (0-5) 12/06/23 Unknown Electrocardiogram Date: 12/06/23 Sinus bradycardia Otherwise normal ECG When compared with ECG of 10-NOV-2020 00:12, Vent. rate has decreased BY 35 BPM
[2023-12-07] MEDS ORDERED: PROPOFOL IV EMULSION 10 MG/ML 20 ML VIAL IV ONE ×2 (10:56→12:29)
[2023-12-07] MEDS ORDERED: fentaNYL citrate PF 100 MCG/2 ML VIAL ONE (10:57)
[2023-12-07] MEDS ORDERED: LIDOCAINE 2% 2 ML VIAL/AMP(20MG/ML) INFIL ONE (10:57)
[2023-12-07] MEDS ORDERED: MIDAZOLAM HCL 1 MG/ML 2ML VIAL ONE (10:57)
[2023-12-07] MEDS ORDERED: ATROPINE SULFATE 0.1 MG/ML 10ML SYR IV PRN (11:32)
[2023-12-07] MEDS ORDERED: fentaNYL citrate PF 100 MCG/2 ML VIAL IV PRN (11:32)
[2023-12-07] MEDS ORDERED: ONDANSETRON INJ 2 MG/ML 2 ML VIAL IV PRN (11:32)
[2023-12-07] MEDS ORDERED: ePHEDrine sulfate 50 MG/ML AMP IV PRN (11:32)
[2023-12-07] MEDS ORDERED: ONDANSETRON INJ 2 MG/ML 2 ML VIAL ONE (12:07)
[2023-12-07] MEDS ORDERED: DEXAMETHASONE SOD INJ 4 MG/ML VIAL ONE (12:08)
[2023-12-07] MEDS ORDERED: ceFAZolin 330 MG/ML 1 GM VIAL ONE ×2 (12:10)
[2023-12-07] MEDS: DIATRIZOATE MEGLUMINE 30% 100ML VIAL INSTIL PRN (12:32)
--- NOTE | 2023-12-07 12:41 | Operative Report ---
PG Post Operative Report Pre & Post Diagnosis Operation Date: 12/07/23 10:50 Pre-Op Diagnosis: (1) Calculus of proximal left ureter: (2) Flank pain: Post-Op Diagnosis: (1) Calculus of proximal left ureter: (2) Flank pain: I identified the patient and participated in the time-out.: Yes Procedure Operation Date: 12/07/23 10:50 Actual Procedures p Cystoscopy with Left Retrograde Pyelogram, Left Stent Placement, Ureteroscopy, Ureteral Dilation, Laser Lithotripsy, and Basket stone extraction(Left) - Raul Green DO Surgeon Raul Green, II, DO Refrigeration Installer None Estimated Blood Loss 1 Findings Consistent with Post-Op Diagnosis Large proximal ureteral stone. Multiple small renal stones. Stones destroyed to dust and small fragments and larger fragments removed. Mild area of stricture in the mid-distal ureter. Dilated. Specimens Stone Fragments - Left Ureteral Drains 6 Fr Multilength Anesthesia Type General Complications none Disposition Disposition: Recovery Room Indications Patient with bothersome stones. Risks and benefits discussed at length. Description of Procedure Patient was consented and brought back to the operating room. Patient was placed under anesthesia in the supine position and moved to the dorsal lithotomy position. Patient was prepped and draped in the regular sterile fashion. A time out was completed identifying the correct patient and procedure. A 30degree Cystoscope was placed into the bladder and the entire bladder was examined. The UO's were identified. The UO was cannulized with a catheter and a retrograde pyelogram was completed. A wire was then placed. A ureteral access sheath and second safety wire was placed. A short segment in the distal-mid ureter was dilated due to likely stricture/narrowing. The flexible ureteroscope was taken into the ureter. The entire ureter and renal pelvis were examined. The stones were identified. A laser fiber was selected and the stones were pulverized to dust and small fragments. Larger fragments were grasped and removed and sent for analysis. The entire area was once again examined. No residual large fragments or areas of concern were noted. The scope was slowly removed with the wire left in place. Contrast was placed through the scope for a pyelogram to assist in stent placement. The entire ureter was examined as the scope was slowly removed. No obstructions or other areas of concern were noted. With the wire in place, a 6 Fr Double J stent was placed. It was confirmed with fluoroscopy. With the stent in place, the bladder was emptied. The scope was removed. The patient was cleaned, aroused from anesthesia, and transferred to the pacu in stable condition having tolerated the procedure well with no complications. I was present and participated in all aspects of the procedure. The patient will be monitored in the PACU until transferred. Plan for stent removal in approx 1-2 weeks. I attest to the content of the Intraoperative Record and any orders documented therein. Any exceptions are noted below.
--- NOTE | 2023-12-07 12:46 | Electrocardiogram Report ---
Test Reason : Blood Pressure : / mmHG Vent. Rate : 055 BPM Atrial Rate : 055 BPM P-R Int : 164 ms QRS Dur : 092 ms QT Int : 406 ms P-R-T Axes : 043 008 006 degrees QTc Int : 388 ms Sinus bradycardia Otherwise normal ECG When compared with ECG of 10-NOV-2020 00:12, Vent. rate has decreased BY 35 BPM Confirmed by Deion Moreno ([id number]) on 12/07/2023 12:45:50 PM Referred By: REFERRED SELF Confirmed By:Deion Moreno
--- NOTE | 2023-12-07 13:03 | Fluoroscopy Report ---
FL retrograde includes kub CLINICAL HISTORY: RETROGRADE/STENT COMPARISON STUDY: None. FLUOROSCOPY TIME: 25 seconds FLUOROSCOPY IMAGES: 3 Ka,r: 6. mGy FINDINGS: Retrograde opacification within the left renal collecting system followed by placement of a left ureteral stent. The ureteral stent appears in good position. IMPRESSION: Fluoroscopic assistance as above. ACT 112: Negative or not required by law. Electronically signed by: Antwon Rizzo M.D. 12/07/2023 1:01 PM
--- NOTE | 2023-12-07 15:37 | Anesthesiology Progress Note ---
Date of Service December 07, 2023 Anesthesia Post Procedure Vital Signs Vital Signs: Temp Pulse Pulse Pulse Pulse Resp BP 12/07/23 14:53 59 L 16 12/07/23 14:07 61 16 12/07/23 13:40 36.7 C 60 16 12/07/23 13:10 36.4 C L 72 15 12/07/23 13:00 70 14 12/07/23 12:51 36.4 C L 88 13 12/07/23 10:56 37.1 C 64 18 12/07/23 07:54 36.8 C 57 L 18 12/06/23 20:30 12/06/23 20:30 12/06/23 18:15 12/06/23 18:15 12/06/23 18:15 12/06/23 18:15 36.5 C 62 18 12/06/23 18:15 36.5 C 62 18 12/06/23 17:57 54 L 16 135/82 12/06/23 17:00 52 L 18 BP BP Pulse Ox Pulse Ox O2 Del Method O2 Del Method O2 Flow Rate 12/07/23 14:53 160/89 H 96 Room Air 12/07/23 14:07 152/81 H 98 Room Air 12/07/23 13:40 142/87 H 97 Room Air 12/07/23 13:10 147/82 H 97 Room Air 12/07/23 13:00 136/86 96 Room Air 12/07/23 12:51 153/89 H 100 Oxymask 8 12/07/23 10:56 153/88 H 99 Room Air 12/07/23 07:54 130/94 96 Room Air 12/06/23 20:30 Room Air 12/06/23 20:30 97 Room Air 12/06/23 18:15 Room Air 12/06/23 18:15 97 Room Air 12/06/23 18:15 Room Air 12/06/23 18:15 122/74 97 Room Air 12/06/23 18:15 122/74 97 Room Air 12/06/23 17:57 98 Room Air 12/06/23 17:00 137/83 96 Room Air Pain Intensity Left Flank: Pain Intensity: 3 Transfer of Care Handoff Completed per policy Notes Mental Status: alert / awake / arousable and participated in evaluation Patient Amnestic to Procedure: Yes Nausea / Vomiting: adequately controlled Pain: adequately controlled Airway Patency, RR, SpO2: stable & adequate BP & HR: stable & adequate Hydration State: stable & adequate Anesthetic Complications: no major complications apparent and Pt Satisfied with anesthetic care
[2023-12-07] MEDS: cefTRIAXone SODIUM 2,000 MG in DEXTROSE 5 % MINI-B 50 ML IV SCH (16:15)
[2023-12-07] MEDS: ACETAMINOPHEN 325 MG TAB PO PRN (16:47)
[2023-12-07] MEDS: KETOROLAC TROMETHAMINE 15 MG/ML VIAL IV ONE (18:16)
[2023-12-07] MEDS: PHENAZOPYRIDINE HCL 200 MG TAB PO PRN (21:00)
[2023-12-07] MEDS: SIMETHICONE 80 MG CHEW PO PRN (21:00)
[2023-12-08] MEDS: KETOROLAC TROMETHAMINE 15 MG/ML VIAL IV PRN (00:37)
[2023-12-08 06:08] LABS: Calcium 9.2 mg/dl (8.6-10.3); Creatinine Clr Calc Pharmacy 94.3 ml/min; Est GFR (African American) 93.4 ml/min; Est GFR (Non-African American) 80.6 ml/min; Potassium 3.8 mmol/L (3.5-5.1)
[2023-12-08 06:16] LABS: Basophils # (auto) 0.03 K/uL (0.00-0.20); Basophils % (auto) 0.3 %; Eosinophils # (auto) 0.04 K/uL (0.00-0.50); Eosinophils % (auto) 0.3 %; Hematocrit (blood only) 39.3 % (42.0-52.0); Hemoglobin 13.7 g/dl (14.0-18.0); Immature Granulocytes # (auto) 0.04 K/uL (0.01-0.20); Immature Granulocytes % (auto) 0.3 %; Lymphocytes # (auto) 2.18 K/uL (1.20-3.40); Lymphocytes % (auto) 18.3 %; Mean Corpuscular Hemoglobin 30.4 pg (25.0-34.0); Mean Corpuscular Hgb Conc 34.9 g/dL (32.0-36.0); Mean Corpuscular Volume 87.3 fL (80.0-100.0); Mean Platelet Volume 9.8 fL (9.4-12.4); Monocytes % (auto) 9.2 %; Neutrophils # (auto) 8.54 K/uL (1.40-6.50); Neutrophils % (auto) 71.6 %; Platelet Count 222 K/uL (130-400); RDW Coefficient of Variation 12.6 % (11.5-14.5); RDW Standard Deviation 39.9 fL (36.4-46.3); White Blood Count 11.93 K/ul (4.8-10.8)
--- NOTE | 2023-12-08 07:24 | Discharge Summary ---
Date of Service December 08, 2023 Admission HPI Per Admitting Provider Jakob is a 43-year-old male with PMH of anxiety, GERD, deviated septum, chronic sinusitis, and allergic rhinitis. Presented for worsening lower back pain on 12/06. He had a CT A/P completed on 12/03 which noted a left ureteral kidney stone. Hx of prior kidney stones. He endorses left lower back pain, which he characterizes as intermittent, stabbing pain even at rest. He has been taking ibuprofen for the pain at home (4 tablets total). He rates his pain 2/10 after receiving morphine in the ED. Patient takes vitamin supplements on daily basis; no other medications. He endorses occasional smoking with tobacco cigarettes, and vaping of THC; not frequently. He denies recent alcohol use. Patient is mildly bradycardic at 52 bpm at time of admission; vitals otherwise stable. ED course: Rocephin 2000 mg IV Zofran 4 mg IV NSS 1000 mL IV Morphine sulfate 6 mg IV ROS: Patient endorses chills, nausea, dysuria, and burning with urination. Patient denies fever, body aches, sweating, cough, chest pain, SOB, abdominal pain, vomiting, diarrhea, urinary retention, blood in the urine/stool, saddle anesthesia, or pain/numbness/tingling in the legs. Admission Exam Per Admitting Provider Physical Exam: General: no acute distress; non-toxic appearing; well-nourished; cooperative HEENT: normocephalic, atraumatic; no scleral icterus; PERRLA; vision and hearing grossly intact Neck: supple; no lymphadenopathy; trachea midline Skin: warm, dry without signs of tenting; no cyanosis; no rashes, bruising, lesions, or erythema noted CV: chest wall NTP; RRR; S1/S2 normal; no murmurs/rubs/gallops; pulses intact and symmetric at radial, DP, and PT Lungs: no acute respiratory distress; symmetrical chest wall expansion; clear breath sounds across all lung gonzalez w/o adventitious sounds; no wheezing ABD: Soft, NTP; BS present; no rebound/guarding; no ascites; no distention; positive left CVA tenderness, no flank pain to palpation; no rashes or bruising noted on abdomen or back MSK: no tics or fasciculations; no edema noted in the LEs b/l, nonerythematous Neuro: A&Ox3; normal mood and affect; fluent speech; no focal deficits; sensation grossly intact in the LEs b/l Principal Diagnosis kidney stone s/p cystoscopy, l. ureteral stent Discharge Exam Constitutional WD/WN, vitals as above Respiratory normal respiratory effort, lungs clear to auscultation Cardiovascular RRR, no murmur, no edema Extremities: no calf tenderness and no pedal edema Gastrointestinal (Abdomen) Percussion/Palpation: + abdomen tender (suprapubic area and l. side after cystoscopy/ureteral stent placement) Musculoskeletal Extremities: extremities normal to inspection Psychiatric A+Ox3, euthymic affect Genitourinary no CVA tenderness Discharge Data Allergies Allergy/AdvReac Type Severity Reaction Status Date / Time Penicillins AdvReac Intermediate feels very Verified 12/06/23 16:35 tired Consultations 12/06/23 16:42 ED Decision to Admit Stat 12/06/23 18:31 Consult Urology Routine Procedures Performed Operation Date: 12/07/23 10:50 Actual Procedures p Cystoscopy, Retrograde Pyelogram, Left Stent Placement, Ureteroscopy, Laser Lithotripsy, Basket stone extraction(Left) - Raul Green, Ordered Studies 12/06/23 17:21 US Kidney Bladder [US renal/blad retro comp] Stat 12/07/23 FL retrograde includes kub Routine Hospital Course (1) Calculus of proximal left ureter: (2) Flank pain: (3) S/P cystoscopy with ureteral stent placement: Plan (1) Nephrolithiasis/Flank pain Acute worsening of lower back pain on 12/06/23, Hx of kidney stones Patient had CT on 12/03 which revealed left proximal ureteral stone with minimal hydroureter X-ray KUB on 12/06 revealed unchanged position of 9 mm calculus within the proximal left ureter -- Underwent Cystoscopy/L. retrograde pyelogram/l. ureteral stent kg cement/laser lithotripsy/Basket stone extraction -- Urine Cx ordered --> pinpoint growth, re-incubated --> growth showed < 6000 CFUs, -- home with keflex for 4 days - per urology recommendation, Phenazopyridine, 200 mg, PO, TID, PRN, oxycodone. continue flomax. Total Time Total Time Spent Total Time Spent (In Minutes): see attending attestation Discharge Plan Discharge Items Patient Disposition: Home - Self-Care Reason For Visit: NEPHROLITHIASIS, LEFT LOWER BACK PAIN Discharge Diagnosis: left-sided kidney stone S/P cystoscopy w/ ureteral stent placement Activity: Per Instructions section Non-emergency contact: Primary Care Provider Call non-emergency contact if: you have a fever Follow-up/Referrals: Raul Green DO [Physician] - 12/23/23 10:30 am Deloris Donnelly MD [Primary Care Provider] - Diet: Regular Addtl Attending Provider Instructions: You were admitted to the hospital for left flank pain/kidney stone. You were treated with medication--that include tamsulosin, Dilaudid, phenazopyridine, ceftriaxone, ondansetron, Toradol, and simethicone--and procedures--that included a cystoscopy and ureteral stent placement. A discharge summary will be sent to your primary care physician to ensure continuity of care. Please bring this discharge summary with you to your next office appointment so that your provider can review it at that time. Follow-up appointments: We have requested a follow-up appointment with your primary care physician within one week of discharge. Please call their office if you do not hear from them. Keep all your follow-up appointments as already scheduled. If you cannot make an appointment, notify your provider. Medications: Your medication list has been reviewed and reconciled upon discharge to ensure accuracy and continuity of care. An updated list of all your medications is included with your hospital discharge paperwork. Please review this list closely, and make note of any changes. We sent a new medication called phenazopyridine to your pharmacy. Take phenazopyridine (200 mg) one tablet, three times a day, for 10 days. We sent a new medication called hydromorphone (Dilaudid) to your pharmacy. Take hydromorphone (Dialaudid), 5 mg /one tablet up to three times a day for breakthrough pain for total of 14 doses. Also you can take ibuprofen, 800 mg, up to four times a day for a total of 3200 mg/day or naproxen sodium, 220 mg (200 mg naproxen), up to seven times a day for a total of ~ 1400 mg naproxen. But don't take both. And only take that dosage for a week, at which point you would need to resume the dosage recommended on [id number]-[id number] bottle. Take your medications as instructed; do not skip a dose of your medicines. Make sure all of your doctors know every medicine you are taking (including pprq-fgd-elftyhg medicines, vitamins, and supplements). Call your primary care provider before taking any new medicines (including fdtm-dnw-aizfbmn medicines, vitamins, and supplements), because some of these may interact with your current medications, or may make your symptoms worse. Tell your primary care provider if you cannot afford your medications. CONTACT YOUR PRIMARY CARE PROVIDER or urologist if you experience any of the following: if you continue to have copious amounts of blood in your urine if you have uncontrolled pain, recurrent fevers Difficulty following your treatment plan, or difficulty taking medications CALL 911 OR GO TO THE EMERGENCY DEPARTMENT if you experience any of the following: Sudden, severe abdominal pain or nausea/vomiting Severe chest pain, or chest pain that radiates (moves) to your jaw or arm Sudden, severe shortness of breath or difficulty breathing Thank you for allowing us to participate in your care Add Aircraft Lay Out Worker Provider Instructions: The urology office will contact you to arrange a follow-up visit. Please call the urology office at [phone] with any questions, concerns or need to reschedule appointments for any reason. We are happy to assist you. While you have a ureteral stent in place: Some discomfort is normal. Certain movements may trigger pain or a feeling that you need to urinate. You may also feel mild soreness or pressure before or during urination. These symptoms should go away a few days after the stent is removed. Your urine may be slightly pink or red. This is due to bleeding caused by mi nor irritation from the stent. This may happen on and off while you have the stent, it is not harmful and is to be expected. Medication to help minimize discomfort or bladder spasms, or to prevent i nfection may be prescribed. Take this as directed. Drink plenty of fluids to help flush out your urinary tract. When to call [facility] at [phone]: Your urine contains heavy blood clots You are constantly leaking urine Fever of 101F or higher, chills, nausea, or vomiting Your pain is not relieved with medication The end of the stent comes out of your urethra Pending Studies at Discharge: Yes Studies:: kidney stone analysis, urology will F/U Stand-Alone Forms: [facility], Work/School Release, Smoking Cessation Medications and DC Order Prescriptions: New oxycodone 5 mg tablet 5 mg PO TID PRN (Reason: pain) Qty: 14 0RF phenazopyridine 200 mg tablet 200 mg PO TID PRN (Reason: pain) Qty: 30 0RF cephalexin 500 mg capsule 500 mg PO BID 4 Days Qty: 8 0RF Continued tamsulosin 0.4 mg capsule 0.4 mg PO DAILY Rowatinex 1 dose PO DIRECTED PRN (Reason: MUSCLE SPASMS/BLADDER STONES) Rx Instructions: MEDICATION FROM [place] Discharge Orders: Discharge Order (Routine); Ordered 12/08/23 Ordered By: Freeman Martinez/Other Patient Handouts: Cystoscopy Admission Data Admit Date/Time: 12/06/23 17:17 Attending Provider: Sharlene Andrade Admit Provider: Sigifredo Tinoco Primary Care Provider: Deloris Donnelly Other Providers: Raul Green; Sigifredo Tinoco Other Interventions: Discharge Summary Assessment (RN) Last Done: 12/08/23 15:12 Supervising Physician Co-Signing Physician Notes Attending Physician Supervision Note: I independently interviewed and examined the patient and verified the vela history and physical, reviewed labs and image studies and agree with findings and care plan noted above. Resident Activity Tracking Resident Involvement: Resident Care Provided Care Provided: Adult Hospital Medicine
--- NOTE | 2023-12-08 11:46 | Urology Progress Note ---
Date of Service December 08, 2023 Assessment & Plan (1) Calculus of proximal left ureter: (2) Flank pain: Plan 43yo M admitted with severe left sided flank pain secondary to an obstructing proximal left ureteral stone. CT abd pelvis from 12/03/23 demonstrated an obstructing 6mm proximal left ureteral stone. KUB 12/06/23 shows unchanged position of the proximal left ureteral stone. POD #1 s/p Cystoscopy with Left Retrograde Pyelogram, Left Stent Placement, Ureteroscopy, Ureteral Dilation, Laser Lithotripsy, and Basket stone extraction Afebrile and hemodynamically stable. Labs today show mild leukocytosis and normal renal function. Urine culture final with 6K gram-positive cocci, no sensitivities. On Ceftriaxone. Okay for discharge from perspective. Recommend d/c with short course of antibiotics and tamsulosin, PRN pyridum, PRN Oxybutynin for stent management. Will arrange outpatient follow-up with our service for stent removal. Urology will sign-off. Please call with any further questions or concerns. Admission and Anticipated Discharge Date Admission Date: December 06, 2023 Subjective Patient examined at bedside this AM. Awake, resting in bed on arrival. No acute distress. Still with some left-sided pain this morning, mostly with urination. Some hematuria and dysuria as expected. No fevers. Review of Systems Constitutional: as per Subjective / HPI Gastrointestinal: as per Subjective / HPI Genitourinary: + as per Subjective / HPI Physical Exam Constitutional: well developed and well nourished; no acute distress Respiratory: normal respiratory effort; no respiratory distress and no labored breathing Musculoskeletal: Head/Neck/Chest: normocephalic Neurologic: moves all extremities and awake Psychiatric: A+Ox3, euthymic affect Results & Data Vital Signs (Past 12 Hours) Vital Signs Temp Pulse Pulse Resp BP Pulse Ox O2 Del Method 12/08/23 07:39 36.9 C 65 16 129/77 93 Room Air 12/08/23 06:03 36.6 C 81 18 179/85 H 97 Room Air 12/08/23 02:57 36.6 C 75 16 113/69 96 Room Air PG Care Time/CCT Total # of Minutes Spent Total Time Spent with Patient: Total time spent is greater than 50% in coordination of care (as documented) at patient's floor/unit and/or counseling patient: Coding Level of Care Code 77131 SUB INP/OBS CARE 235MIN Diagnoses Calculus of proximal left ureter N20.1 Flank pain R10.9
== END 2023-12-08 15:45 | disposition home or self-care (01) | DRG 661 ==
LOC: ED 13:16 → 3E 17:17 → SUATTDRO 17:17 → 3E 17:57